=== PATIENT | male | born 1970 | race African-American/Black ===

== ENCOUNTER 2023-02-22 08:27 | Emergency (ER) | payer OTHER, SELFPAY | END 2023-02-22 09:00 | disposition left against medical advice (07) | PROVIDERS: Emergency Provider Internal Medicine Hematology & Oncology; PCP Family Medicine | DX: Z53.21 Procedure and treatment not carried out due to patient leaving prior to being seen by health care provider (principal) | CPT/HCPCS: 99199 ==

== ENCOUNTER 2023-07-01 09:19 | Outpatient (CLI) | payer OTHER, SELFPAY ==
--- NOTE | 2023-07-09 14:45 | WPDHOMESLEEP ---
Sleep Study - Home Unattended Date of Study: 07/01/23 Ordering Provider: Mary Esparza, Interpreting Provider: Tamica Rowland, DO Home Sleep Study Type: Watch PAT Height: 1.68 m Weight: 88.904 kg Body Mass Index: 31.6 Neck Circumference (inches): 16.5 [place]: 8 Reason for Sleep Study Unrefreshing sleep Sleep History The patient is a 52 year male with hypertension, hyperlipidemia, congenital hypoplasia of kidney, aortic valve stenosis, heart murmur, history of stroke and history of tobacco use that had a sleep study ordered by his primary care physician for evaluation of sleep apnea. The patient occasionally awakens from sleep short of breath. He rarely awakens at night with heartburn, belching or cough. He constantly snores and is frequently loud enough others complain. He denies having trouble sleeping when he has a cold. He occasionally wakes up gasping for air throughout the night. He denies having breathing problems at night observed by himself or others. He constantly sweats excessively at night. He frequently has heart palpitations or irregular heartbeats during the night. He denies falling asleep during the day and denies falling asleep while driving. He denies sleep paralysis, cataplexy and hypnagogic / hypnopompic hallucinations. He denies feeling afraid of going to sleep. He denies having nightmares. He denies remembering his dreams. He occasionally has thoughts racing through his mind. He rarely feels sad or depressed. He denies having anxiety. He denies having muscular tension. He denies noticing parts of his body jerk. He denies kicking during the night. He denies having crawling and aching feelings in his legs and denies having leg pain during the night. He denies grinding his teeth during sleep and denies awakening with morning jaw pain. He is occasionally bothered by pain during the day but never awakened by pain during the night. He denies waking up feeling stiff in the morning. He denies waking up with sore or achy muscles. He denies waking up with pain in the neck, spine and other joints. He goes to bed between 9-9:30 p.m. on both weekdays and weekends. It takes him less than 30 minutes to fall asleep. He wakes up twice throughout the night to urinate and is able to fall back asleep within 15-30 minutes. He wakes up at 4:10 a.m. on weekdays and at 5:00 a.m. at the earliest on the weekends. He typically gets 6 hours of sleep per night. He does not stay in bed after waking up in the morning. He currently lives with his . He denies consuming any caffeinated beverages within 2 hours of bedtime. He denies engaging in physical exercise before bedtime. He will watch television before falling asleep. He denies taking naps in the afternoon or the evening. He denies consuming caffeinated beverages throughout the day. He consumes 3 alcoholic beverages per day. He quit smoking cigarettes 6 years ago. He denies recreational drug Sleep Procedure The sleep study was completed using [employer] a technically adequate device with seven channels: peripheral arterial tone, actigraphy, body position, snore, respiratory movement, pulse oximetry, sleep staging, and heart rate. Prior to using the device, the patient received verbal and written instructions for its application and was provided with the help desk phone number for additional telephonic instruction with 24-hour availability of qualified personnel to answer questions.? The study was scored using CMS guidelines.?? Sleep Architecture The total recording time is 9 hrs, 24 min. The total sleep time is 7 hrs, 56 min. Sleep latency is 5 minutes. REM latency is 104 minutes. The patient had 41 episodes of waking. Sleep architecture shows 13.2% deep sleep, 64.1% light sleep, and (as % Total Sleep Time) showed NREM (Light 64.1%; Deep 13.2%), and a 22.7% stage REM. The patient spent 60.2% of total sleep time in the supine position. Sleep efficiency was 84.40%
[2023-07-09 14:54] VITALS: BMI 31.6
== END 2023-07-02 11:44 | disposition home or self-care (01) ==
LOC: ANHCSM 09:21
PROVIDERS: PCP Family Medicine; Visit Provider Family Medicine
DX: G47.33 Obstructive sleep apnea (adult) (pediatric) (principal)
CPT/HCPCS: 95800

== ENCOUNTER 2023-08-08 08:47 | Outpatient (CLI) | payer OTHER, SELFPAY ==
--- NOTE | 2023-08-19 16:58 | WPDSLEEPSTUD ---
Sleep Study Date of Study: 08/08/23 Ordering Provider: Mary Esparza, Interpreting Physician: Tamica Rowland, Sleep Study Type: CPAP Titration Height: 1.68 m Weight: 88.904 kg Body Mass Index: 31.6 Neck Circumference (inches): 16.5 [place]: 8 Reason for Sleep Study The patient had a WatchPAT home sleep study on 07/01/2023 that showed an overall AHI of 28.9 with desaturation down to 79%. REM AHI of 56.1. Sleep History The patient is a 52 year male with hypertension, hyperlipidemia, congenital hypoplasia of kidney, aortic valve stenosis, heart murmur, history of stroke and history of tobacco use that had a sleep study ordered by his primary care physician for evaluation of sleep apnea. The patient occasionally awakens from sleep short of breath. He rarely awakens at night with heartburn, belching or cough. He constantly snores and is frequently loud enough others complain. He denies having trouble sleeping when he has a cold. He occasionally wakes up gasping for air throughout the night. He denies having breathing problems at night observed by himself or others. He constantly sweats excessively at night. He frequently has heart palpitations or irregular heartbeats during the night. He denies falling asleep during the day and denies falling asleep while driving. He denies sleep paralysis, cataplexy and hypnagogic / hypnopompic hallucinations. He denies feeling afraid of going to sleep. He denies having nightmares. He denies remembering his dreams. He occasionally has thoughts racing through his mind. He rarely feels sad or depressed. He denies having anxiety. He denies having muscular tension. He denies noticing parts of his body jerk. He denies kicking during the night. He denies having crawling and aching feelings in his legs and denies having leg pain during the night. He denies grinding his teeth during sleep and denies awakening with morning jaw pain. He is occasionally bothered by pain during the day but never awakened by pain during the night. He denies waking up feeling stiff in the morning. He denies waking up with sore or achy muscles. He denies waking up with pain in the neck, spine and other joints. He goes to bed between 9-9:30 p.m. on both weekdays and weekends. It takes him less than 30 minutes to fall asleep. He wakes up twice throughout the night to urinate and is able to fall back asleep within 15-30 minutes. He wakes up at 4:10 a.m. on weekdays and at 5:00 a.m. at the earliest on the weekends. He typically gets 6 hours of sleep per night. He does not stay in bed after waking up in the morning. He currently lives with his . He denies consuming any caffeinated beverages within 2 hours of bedtime. He denies engaging in physical exercise before bedtime. He will watch television before falling asleep. He denies taking naps in the afternoon or the evening. He denies consuming caffeinated beverages throughout the day. He consumes 3 alcoholic beverages per day. He quit smoking cigarettes 6 years ago. He denies recreational drug Sleep Procedure A full night polysomnogram using the [employer] multi-channel system recorded the standard physiologic parameters including EEG, EOG, submentalis EMG, anterior tibialis EMG, EKG, body position, nasal and oral airflow using PAP device flow signal.? Respiratory parameters of chest and abdominal movements were recorded with Respiratory Inductance Plethysmography belts. Oxygen saturation was recorded by pulse oximetry. Video monitoring was also performed. Sleep stages, periodic limb movements, and EEG arousals were scored in 30 second epochs according to the criteria of the AASM Scoring Manual. The Apnea-Hypopnea Index was calculated using CMS guidelines for definition of hypopnea with 4% O2 desaturations while scoring respiratory events. Sleep Architecture The total recording time was 501.8 minutes.? The total sleep time was 388.0 minutes. Sleep latenc
[2023-08-19 17:05] VITALS: BMI 31.6
== END 2023-08-09 06:48 | disposition home or self-care (01) ==
LOC: ANHCSM 08:48
PROVIDERS: PCP Family Medicine; Visit Provider Family Medicine
DX: G47.33 Obstructive sleep apnea (adult) (pediatric) (principal)
CPT/HCPCS: 95811